=== PATIENT | male | born 1995 | race Caucasian/White ===

== ENCOUNTER 2017-06-30 12:46 | Emergency (ER) | payer OTHER ==
[~2017-06-30] VITALS: Ht 170.2 cm; Wt 77.8 kg
[2017-06-30 13:04] VITALS: BP 147/96
[2017-06-30] MEDS ORDERED: IBUP-1984 PO (15:15)
[2017-06-30] MEDS ORDERED: HYDROcodone/acetaminophen 5mg/325mg tablet PO ONE (15:15)
== END 2017-06-30 15:27 | disposition home or self-care (01) ==
LOC: ER 12:47
DX: S60.222A Contusion of left hand, initial encounter (principal); W22.8XXA Striking against or struck by other objects, initial encounter; Y93.89 Activity, other specified; Y92.89 Other specified places as the place of occurrence of the external cause; Y99.8 Other external cause status
CPT/HCPCS: 73130; 99284; A6449

== ENCOUNTER 2018-11-17 16:56 | Emergency (ER) | payer SELFPAY ==
[~2018-11-17] VITALS: Ht 172.7 cm; Wt 74.2 kg
[2018-11-17] MEDS ORDERED: normal saline 1000ml 1,000 ML IV ONE (18:25)
[2018-11-17] MEDS ORDERED: LORazepam 2 mg/ml vial IV ONE (18:25)
[2018-11-17 19:06] LABS: BASOPHILS % (AUTO) 0.5 % (0-1); EOSINOPHILS % (AUTO) 0.7 % (0-6); HEMATOCRIT 45.4 % (42.0-52.0); HEMOGLOBIN 16.3 g/dl (14.0-17.9); LYMPHOCYTES # (AUTO) 0.8 X10'3 (1.1-4.8); LYMPHOCYTES % (AUTO) 14.2 % (21-51); MEAN CORPUSCULAR HEMOGLOBIN 34.1 PG (27.0-31.0); MEAN CORPUSCULAR HGB CONC 35.9 g/dL (33.0-36.5); MEAN CORPUSCULAR VOLUME 94.9 FL (78-98); MEAN PLATELET VOLUME 7.5 FL (7.4-10.4); MONOCYTES # (AUTO) 0.7 X10'3 (0-0.9); MONOCYTES % (AUTO) 13.4 % (2-12); NEUTROPHILS # (AUTO) 3.8 X10'3 (1.8-7.7); NEUTROPHILS % (AUTO) 71.2 % (42-75); PLATELET COUNT 179 X10'3 (140-440); RED BLOOD COUNT 4.78 X10'6 (4.70-6.10); RED CELL DISTRIBUTION WIDTH 13.5 % (11.5-14.5); WHITE BLOOD COUNT 5.4 X10'3 (4.5-11.0)
[2018-11-17 19:07] LABS: ALANINE AMINOTRANSFERASE 208 U/L (12-78); ALBUMIN 4.1 G/DL (3.4-5.0); ALBUMIN/GLOBULIN RATIO 1.1 (1.1-1.5); ALKALINE PHOSPHATASE 108 IU/L (46-116); ANION GAP 16 (8-16); ASPARTATE AMINO TRANSFERASE 191 U/L (10-37); BILIRUBIN,TOTAL 1.5 MG/DL (0.1-1.0); BLOOD UREA NITROGEN 8 MG/DL (7-18); BUN/CREATININE RATIO 8.7 (5.4-32.0); CALCIUM 9.6 MG/DL (8.5-10.1); CHLORIDE 95 MMOL/L (99-107); CREATININE 0.92 MG/DL (0.60-1.10); GLUCOSE 98 MG/DL (70-104); POTASSIUM 3.5 MMOL/L (3.5-5.1); SODIUM 135 MMOL/L (135-145); TOTAL PROTEIN 7.8 G/DL (6.4-8.2); eGFR > 90 ML/MIN
[2018-11-17 19:08] LABS: MAGNESIUM 1.6 MG/DL (1.5-2.4)
--- NOTE | 2018-11-17 19:23 | NUR ---
NOTIFIED BY LAB THAT [facility] IS HELD UP DUE TO EQUIPMENT ISSUES
[2018-11-17 19:26] LABS: CLARITY,URINE CLEAR (Clear); COLOR,URINE YELLOW (Yellow); GLUCOSE, URINE NEGATIVE (Neg); KETONES,URINE >=80 mg/dl (Neg); LEUKOCYTE ESTERASE ,URINE NEGATIVE (Neg); NITRITES, URINE NEGATIVE (Neg); OCCULT BLOOD,URINE NEGATIVE (Neg); PROTEIN,URINE 30 mg/dl (Neg)
[2018-11-17 19:29] LABS: UA COLLECTION TYPE CLN CATCH MIDSTREAM
[2018-11-17 19:32] LABS: WBC,URINE NONE SEEN /HPF (0-4)
[2018-11-17 19:33] LABS: BACTERIA,URINE NONE SEEN /HPF (Neg); CAL OXALATE CRYSTALS 4+ /HPF (NEGATIVE); MUCUS STRANDS MANY /LPF (Neg); SQUAMOUS EPITHELIAL CELL,UR NONE SEEN /LPF (FEW)
[2018-11-17 19:34] LABS: URINE AMPHETAMINE SCREEN NEGATIVE (Neg); URINE BARBITUATE SCREEN NEGATIVE (Neg); URINE BENZODIAZEPINES SCREEN NEGATIVE (Neg); URINE CANNABINOID SCREEN POSITIVE (Neg); URINE COCAINE SCREEN NEGATIVE (Neg); URINE METHADONE SCREEN NEGATIVE (Neg); URINE OPIATE SCREEN NEGATIVE (Neg); URINE PHENCYCLIDINE SCREEN NEGATIVE (Neg)
[2018-11-17] MEDS ORDERED: chlordiazePOXIDE 25mg capsule PO ONE (20:05)
[2018-11-17 20:41] VITALS: BP 142/89
== END 2018-11-17 20:42 | disposition home or self-care (01) ==
LOC: ER 16:57
DX: R74.8 Abnormal levels of other serum enzymes (principal); F10.239 Alcohol dependence with withdrawal, unspecified; R42 Dizziness and giddiness; R00.0 Tachycardia, unspecified
CPT/HCPCS: 36415; 80053; 80305; 81001; 82948; 83735; 84484; 85025; 93005; 96361; 96374; 99284; J2060; J7030

== ENCOUNTER 2020-11-08 01:16 | Emergency (ER) | payer MEDICAID ==
[~2020-11-08] VITALS: Ht 172.7 cm; Wt 70.4 kg
[2020-11-08] MEDS ORDERED: LORazepam 2 mg/ml vial IV ONE (02:00)
[2020-11-08] MEDS ORDERED: ondansetron/PF 4mg/2ml inj IV ONE (02:00)
[2020-11-08] MEDS ORDERED: ONDA4TAB6 PO (03:09)
[2020-11-08 03:12] VITALS: BP 141/74
== END 2020-11-08 03:15 | disposition home or self-care (01) ==
LOC: ER 01:16
DX: F10.239 Alcohol dependence with withdrawal, unspecified (principal); Z72.89 Other problems related to lifestyle; Z79.899 Other long term (current) drug therapy; Y90.9 Presence of alcohol in blood, level not specified
CPT/HCPCS: 96374; 96375; 99284; J2060; J2405